=== PATIENT | female | born 2000 | race Caucasian/White ===

== ENCOUNTER 2020-11-30 02:02 | Emergency (ER) | payer OTHER ==
[~2020-11-30] VITALS: Ht 149.9 cm; Wt 52.3 kg
[2020-11-30] MEDS ORDERED: PENICILLIN V P500 MG PO (02:30)
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
== END 2020-11-30 02:42 | disposition home or self-care (01) ==
LOC: ED 02:02
DX: K14.8 Other diseases of tongue (principal)
CPT/HCPCS: 99282

== ENCOUNTER 2021-02-09 06:24 | Emergency (ER) | payer OTHER ==
[~2021-02-09] VITALS: Ht 149.9 cm; Wt 52.2 kg
[~2021-02-09 06:24] MED LIST: PENICILLIN V P500 MG PO
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
[2021-02-09] MEDS ORDERED: ONDANSETRON ODT8 MG PO (12:24)
[2021-02-09] MEDS ORDERED: PROMETHAZINE HC25 M1 PO (12:24)
[2021-02-09] MEDS ORDERED: PEPCID20 MG PO (12:24)
== END 2021-02-09 13:01 | disposition home or self-care (01) ==
LOC: ED 06:24
DX: O99.611 Diseases of the digestive system complicating pregnancy, first trimester (principal); K29.00 Acute gastritis without bleeding; Z3A.09 9 weeks gestation of pregnancy; O99.331 Smoking (tobacco) complicating pregnancy, first trimester; F17.200 Nicotine dependence, unspecified, uncomplicated
CPT/HCPCS: 76705; 76801; 76817; 80053; 81001; 84703; 85025; 87088; 96374; 96375; 96376; 99284-25; J1170; J2405; J2550; J7030

== ENCOUNTER 2021-04-29 01:42 | Emergency (ER) | payer OTHER ==
[~2021-04-29] VITALS: Ht 149.9 cm; Wt 56.0 kg
[~2021-04-29 01:42] MED LIST changes: +ONDANSETRON ODT8 MG PO; +PEPCID20 MG PO; +PROMETHAZINE HC25 M1 PO
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
[2021-04-29] MEDS ORDERED: CEPHALEXIN500 MG PO (01:58)
== END 2021-04-29 04:18 | disposition home or self-care (01) ==
LOC: ED 01:42
DX: O99.612 Diseases of the digestive system complicating pregnancy, second trimester (principal); K29.70 Gastritis, unspecified, without bleeding; O99.322 Drug use complicating pregnancy, second trimester; F15.10 Other stimulant abuse, uncomplicated; Z3A.20 20 weeks gestation of pregnancy; O99.332 Smoking (tobacco) complicating pregnancy, second trimester; F17.200 Nicotine dependence, unspecified, uncomplicated
CPT/HCPCS: 51701; 76705; 76815; 80053; 81001; 83690; 85025; 85610; 99284-25; J2405; J7030